=== PATIENT | female | born 2000 | race Caucasian/White ===

== ENCOUNTER 2023-04-10 12:00 | Outpatient (REF) | payer MEDICAID, SELFPAY ==
[2023-04-11 11:20] LABS: CT PCR NOT DETECTED (Not Detect.); NG PCR NOT DETECTED (Not Detect.)
[2023-04-11 13:59] LABS: BV Int Neg Control Negative (Negative); BV Int Pos Control Positive (Positive)
== END 2023-04-10 12:01 | disposition home or self-care (01) ==
LOC: HO.HHCLNP 12:00
PROVIDERS: Visit Provider Emergency Medicine
DX: Z11.3 Encounter for screening for infections with a predominantly sexual mode of transmission (principal); N89.5 Stricture and atresia of vagina
CPT/HCPCS: 0353U; 87480; 87510; 87660

== ENCOUNTER 2024-01-22 12:12 | Outpatient (REF) | payer MEDICAID, SELFPAY ==
[2024-01-22 14:07] LABS: HCG Quantitative < 2 mIU/mL
[2024-01-22 15:32] LABS: TSH reflex Free T4 1.79 uIU/mL (0.32-4.0)
== END 2024-01-22 12:13 | disposition home or self-care (01) ==
LOC: HO.HHCL 12:12
PROVIDERS: Visit Provider Advanced Practice Midwife
DX: N92.6 Irregular menstruation, unspecified (principal)
CPT/HCPCS: 36415; 84443; 84702

== ENCOUNTER 2025-07-09 16:07 | Outpatient (REF) | payer MEDICAID, SELFPAY ==
[2025-07-09 23:31] LABS: CT PCR Urine NOT DETECTED (Not Detect.); NG PCR Urine NOT DETECTED (Not Detect.)
== END 2025-07-09 16:08 ==
LOC: HO.LNP 16:07
DX: Z20.2 Contact with and (suspected) exposure to infections with a predominantly sexual mode of transmission (principal)
CPT/HCPCS: 87491; 87591

== ENCOUNTER 2025-07-10 08:48 | Outpatient (REF) | payer MEDICAID, SELFPAY ==
[2025-07-10 10:59] LABS: MANUAL DIFF FLAG NO
[2025-07-10 11:03] LABS: Hematocrit 42.0 % (37.0-47.0); Hemoglobin 13.7 g/dl (12.0-16.0); Imm Gran Abs Auto 0.03 X10*3/uL (0.00-0.03); Imm Gran Pct Auto 0.6 % (0.0-0.4); Lymphocytes Absolute Auto 1.7 X10*3/uL (1.2-4.9); Mean Corpuscular HGB Conc 32.6 g/dl (31.0-35.0); Mean Corpuscular Hemoglobin 27.5 pg (27.0-33.0); Mean Corpuscular Volume 84.3 fL (80.0-98.0); NRBC Abs Auto 0.000 X10*3/uL (0.0-0.012); NRBC Pct Auto 0.0 /100WBC (0.0-0.2); Platelet Count 317 X10*3/uL (160-400); Red Blood Count 4.98 X10*6/uL (4.20-5.50); White Blood Count 5.1 X10*3/uL (4.8-10.8)
[2025-07-10 11:32] LABS: Alanine Aminotransferase 27 U/L (0-31); Albumin Level 4.7 g/dL (3.5-5.0); Alkaline Phosphatase 88 U/L (39-117); Anion Gap 11 (12-20); Aspartate Amino Transferase 27 U/L (5-31); Blood Urea Nitrogen 7 mg/dL (9-16); Calcium 9.2 mg/dL (8.4-10.2); Carbon Dioxide 25 mmol/L (22-29); Chloride 107 mmol/L (96-108); Estimated Glomerular Filt Rate > 60; Potassium 4.5 mmol/L (3.3-5.1); Sodium 138 mmol/L (135-145); Total Protein 7.9 g/dL (6.5-8.0)
[2025-07-10 11:47] LABS: Syphilis Screen Nonreactive (Nonreactive)
[2025-07-10 11:53] LABS: HBS Num1 0.00 mIU/mL (0-7.99); HBc Num1 0.18 S/CO (0.00-0.79); HBsAGNum1 0.35 S/CO (0.00-0.99); HIV Num 1 0.07 S/CO (0.00-0.99); Hepatitis B Surface Antigen Negative (Negative); ~HepC Num1 0.22 S/CO (0.00-0.79); ~Hepatitis B Surface Antibody NONREACTIVE (Nonreactive); ~Hepatitis C Antibody Nonreactive (Nonreactive)
== END 2025-07-10 08:49 | disposition home or self-care (01) ==
LOC: HO.HHCL 08:48
DX: Z00.00 Encounter for general adult medical examination without abnormal findings (principal); Z11.3 Encounter for screening for infections with a predominantly sexual mode of transmission; Z11.59 Encounter for screening for other viral diseases; Z82.71 Family history of polycystic kidney; Z11.4 Encounter for screening for human immunodeficiency virus [HIV]
CPT/HCPCS: 36415; 80053; 85025; 86704; 86706; 86780; 86803; 87340; 87389